=== PATIENT | female | born 1935 | race Caucasian/White ===

== ENCOUNTER → 2016-04-15 | Outpatient (CLI) | payer MEDICARE ==
--- NOTE | 2016-04-15 16:16 | REP ---
CAROTID ULTRASOUND: Real-time ultrasound evaluation and duplex Doppler interrogation of the extracranial carotid vasculature is performed. The study is extremely limited to high bifurcation and deep location of the vessels. The internal carotid arteries could not be visualized. Peak systolic velocity in the right common carotid artery is 76.7 cm/sec and peak systolic velocity in the left common carotid artery is 52.8 cm/sec. Peak systolic velocity in the right external carotid artery is 79.6 cm/sec. There is normal direction of flow in the right vertebral artery. The left vertebral artery could not be visualized. IMPRESSION: Internal carotid arteries could not be visualized due to high bifurcation and deep location of the vasculature. Recommend CTA or MRA of the carotids. Signed by Taj Ojeda MD 04/15/2016 05:01 P
== END ==
LOC: M RAD 13:59
PROVIDERS: ATTEND Ophthalmology
DX: H53.9 Unspecified visual disturbance (principal)

== ENCOUNTER → 2016-07-17 | Day surgery (SDC) | payer MEDICARE ==
[~2016-07-17] VITALS: Ht 152.4 cm; Wt 131.5 kg
[~2016-07-17] MED LIST: ACETAMINOPHEN 325 MG TAB PO PRN; ALTA10CA3 PO; AcetaZOLAMIDE 500 MG ER CAP PO ONE; BSS with VANC/TOB/EPI for EYE CASES IR ONE; CYCLOPENTOLATE 2% OPHTH SOLN 2ML BTL OD ONE; D5W/0.2% SODIUM CHLORIDE 250 ML IV ONE; FURO40TA2 PO; HEALON DUET (HEALON 10MG/ML 0.55ML & HEALON ENDOCOAT 30MG/ML 0.85ML) As Ordered ONE; KETOROLAC 0.5% OPHTH SOLN OD ONE; LEVO75TA4 PO; LIDOCAINE 1% SDV 5 ML VIAL As Ordered ONE; LIDOCAINE 4% INJ 5 ML AMP OU ONE; MIDAZOLAM INJ 2 MG/2 ML VIAL (J2250) As Ordered ONE; MOXIFLOXACIN IN BSS 0.25MG/0.25ML INTRACAMERAL INJ (OR EYE ONLY)(J2280) As Ordered ONE; OFLOXACIN 0.3 % (OCUFLOX) OPTH SOL 5ML OD ONE; PHENYLEPHRINE 2.5% OPHTH SOL 2ML OD ONE; POVIDONE-IODINE 5% OPHTH PREP SOL 30ML As Ordered ONE; PROPARACAINE 0.5% OPHTH SOL 15ML OD PRN; TRIAMCINOLONE PRES FR 40 MG/ML 1ML(TRIESENCE)(OR EYE ONLY)(J3300 PER 1MG) As Ordered ONE; TRIMETHOBENZAMIDE 300 MG CAP PO PRN; TROPICAMIDE 1% OPHTH SOLN 2ML OD ONE; ULOR80TA PO; VITA200028 PO; fentaNYL 100 MCG/2 ML INJECTION (J3010) As Ordered ONE
[2016-07-17 08:40] VITALS: BP 144/80
== END | disposition home or self-care (01) ==
LOC: M SDC 06:30
PROVIDERS: ATTEND Ophthalmology
DX: H25.011 Cortical age-related cataract, right eye (principal); R94.31 Abnormal electrocardiogram [ECG] [EKG]; I12.9 Hypertensive chronic kidney disease with stage 1 through stage 4 chronic kidney disease, or unspecified chronic kidney disease; K21.9 Gastro-esophageal reflux disease without esophagitis; E66.01 Morbid (severe) obesity due to excess calories; N18.4 Chronic kidney disease, stage 4 (severe); E11.22 Type 2 diabetes mellitus with diabetic chronic kidney disease; E03.9 Hypothyroidism, unspecified; R06.09 Other forms of dyspnea; E78.2 Mixed hyperlipidemia; E79.0 Hyperuricemia without signs of inflammatory arthritis and tophaceous disease; R23.3 Spontaneous ecchymoses; Z88.1 Allergy status to other antibiotic agents; Z88.8 Allergy status to other drugs, medicaments and biological substances; Z91.09 Other allergy status, other than to drugs and biological substances; Z79.899 Other long term (current) drug therapy; Z79.82 Long term (current) use of aspirin; Z90.710 Acquired absence of both cervix and uterus; Z98.51 Tubal ligation status; Z87.891 Personal history of nicotine dependence; Z91.19 Patient's noncompliance with other medical treatment and regimen
CPT/HCPCS: 66984; J2250; J2280; J3010; J3300; V2632

== ENCOUNTER → 2016-12-30 | Outpatient (CLI) | payer MEDICARE ==
[~2016-12-30] MED LIST changes: -ACETAMINOPHEN 325 MG TAB PO PRN; -ALTA10CA3 PO; +ALTA1CAP4 PO; -AcetaZOLAMIDE 500 MG ER CAP PO ONE; -BSS with VANC/TOB/EPI for EYE CASES IR ONE; -CYCLOPENTOLATE 2% OPHTH SOLN 2ML BTL OD ONE; -D5W/0.2% SODIUM CHLORIDE 250 ML IV ONE; -HEALON DUET (HEALON 10MG/ML 0.55ML & HEALON ENDOCOAT 30MG/ML 0.85ML) As Ordered ONE; -KETOROLAC 0.5% OPHTH SOLN OD ONE; -LIDOCAINE 1% SDV 5 ML VIAL As Ordered ONE; -LIDOCAINE 4% INJ 5 ML AMP OU ONE; -MIDAZOLAM INJ 2 MG/2 ML VIAL (J2250) As Ordered ONE; -MOXIFLOXACIN IN BSS 0.25MG/0.25ML INTRACAMERAL INJ (OR EYE ONLY)(J2280) As Ordered ONE; -OFLOXACIN 0.3 % (OCUFLOX) OPTH SOL 5ML OD ONE; -PHENYLEPHRINE 2.5% OPHTH SOL 2ML OD ONE; -POVIDONE-IODINE 5% OPHTH PREP SOL 30ML As Ordered ONE; -PROPARACAINE 0.5% OPHTH SOL 15ML OD PRN; -TRIAMCINOLONE PRES FR 40 MG/ML 1ML(TRIESENCE)(OR EYE ONLY)(J3300 PER 1MG) As Ordered ONE; -TRIMETHOBENZAMIDE 300 MG CAP PO PRN; -TROPICAMIDE 1% OPHTH SOLN 2ML OD ONE; -fentaNYL 100 MCG/2 ML INJECTION (J3010) As Ordered ONE
--- NOTE | 2016-12-31 08:52 | REP ---
MRI BRAIN WITHOUT CONTRAST: HISTORY: Dizziness. An area of increased signal intensity on T2-weighted images is present in the medial left parietal lobe. This represents an old infarction. A small amount of chronic hemorrhage is present. Areas of increased signal intensity on T2-weighted images are present in the periventricular and subcortical white matter. This represents small vessel ischemic disease. There is no intraparenchymal hemorrhage, acute infarct, mass or midline shift. The ventricular system and cortical sulci are dilated consistent with mild volume loss. There is no extracerebral collection. Mucosal thickening is present in the left sphenoid sinus. IMPRESSION: 1. 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 2. Small vessel ischemic disease. 3. Mild volume loss. Signed by Liu Javier MD 12/31/2016 10:00 A
--- NOTE | 2016-12-31 08:56 | REP ---
MRA BRAIN WITHOUT CONTRAST: HISTORY: Dizziness. 3D [id number] MR angiography was performed at the level of the [place]. There is no aneurysm or arteriovenous malformation. Mild atherosclerotic disease involves the cavernous and supraclinoid internal carotid arteries, distal left vertebral artery and posterior cerebral arteries. Major intracranial vessels are patent. The vertebral arteries are equal in size. IMPRESSION: 1. There is no aneurysm or arteriovenous malformation. 2. Atherosclerotic disease as described above. Signed by Liu Javier MD 12/31/2016 10:00 A
== END ==
LOC: M PLARAD 15:52
PROVIDERS: ATTEND Psychiatry & Neurology Neurology
DX: I63.9 Cerebral infarction, unspecified (principal); I73.9 Peripheral vascular disease, unspecified

== ENCOUNTER → 2016-12-30 | Outpatient (CLI) | payer MEDICARE ==
--- NOTE | 2016-12-30 19:54 | REP ---
CAROTID DUPLEX ULTRASOUND: 12/30/2016. Clinical history: Cerebral infarction, unspecified. Comparison: 04/15/2016. Findings: This study is again very limited due to very tortuous deep vessels and extremely high bifurcation is her lack of range of motion in the neck also were limiting. We are unable to image the ICA or ECA on either side, the same problem we had on the April 08, 2016 examination. Week and determine P velocities in the CCA, on the right 0.83 M/S on the left 0.51 M/S. Impression: 1. Nondiagnostic carotid ultrasound study. See details above. Recommend MRA carotids as was described in the report on 04/15/2016. Signed by Branden Vasquez MD 12/30/2016 07:45 P
== END ==
LOC: M RAD 17:09
PROVIDERS: ATTEND Psychiatry & Neurology Neurology
DX: I63.9 Cerebral infarction, unspecified (principal)

== ENCOUNTER → 2017-01-08 | Outpatient (CLI) | payer MEDICARE ==
--- NOTE | 2017-01-08 12:28 | REP ---
MR angiography of the carotid arteries without contrast: History: CVA, right sided paralysis. EGFR less than 30, therefore unable to give contrast. Technique: [id number] MR angiography of the carotids is acquired without contrast. Maximal intensity projection and source axial images are viewed. MR angiographic findings: There is some motion artifact. Vertebral arteries in the neck are patent and symmetric. Great vessel origins appear intact. Distal common carotid arteries are tortuous and both curve posteriorly and medially to approach one another in the retropharyngeal soft tissues. Bifurcations are bilaterally high and again in a retropharyngeal position. No significant plaquing is seen. Impression: Considerable carotid tortuosity seen with the distal common carotid arteries approaching one another in the midline in a retropharyngeal position proximal to the bifurcations. The bifurcations are therefore retropharyngeal as well but otherwise unremarkable. Considerable tortuosity. Symmetric intact vertebral arteries. Signed by Eduar Cash MD 01/08/2017 01:40 P
== END ==
LOC: M RAD 07:43
PROVIDERS: ATTEND Psychiatry & Neurology Neurology
DX: Z86.73 Personal history of transient ischemic attack (TIA), and cerebral infarction without residual deficits (principal)